=== PATIENT | male | born 1940 | race Caucasian/White ===

== ENCOUNTER 2019-01-10 10:32 | Emergency (ER) | payer MEDICARE ==
[2019-01-10] MEDS ORDERED: cefTRIAXone\\ROCEPHIN 2 GM VIAL ONE (11:35)
[2019-01-10] MEDS ORDERED: Sodium Chloride 0.9% 100 ML ONE (11:35)
[2019-01-10] MEDS ORDERED: Adacel (T-DAP) 0.5 ML SYRINGE ONE (11:35)
[2019-01-10 11:45] LABS: #Basophils 0.1 thou/uL (0.0-0.2); #Eosinphils 0.1 thou/uL (0.0-0.7); #Lymphocytes 0.9 thou/uL (1.20-3.40); #Monocytes 1.1 thou/uL (0.11-0.59); #Neutrophils 6.2 thou/uL (1.40-6.50); %Basophils 1.1 % (0.0-1.0); %Eosinophils 0.7 % (0.0-10.0); %Lymphocytes 10.6 % (21.0-51.0); %Monocytes 12.8 % (0.0-10.0); %Neutrophils 74.9 % (42.0-75.0); Hemoglobin 13.4 g/dL (14.0-18.0); Mean Corpuscular Hemoglobin 27.3 pg (27.0-31.0); Mean Corpuscular Volume 85.4 fL (78.0-98.0); Mean Platelet Volume 7.7 fL (7.4-10.4); Platelet Count 261 thou/uL (130-400); RBC Distribution Width 11.7 % (11.5-14.5); Red Blood Cell (RBC) Count 4.89 mill/uL (4.70-6.10); White Blood Cell (WBC) Count 8.2 thou/uL (4.8-10.8)
[2019-01-10 12:04] LABS: ALT (SGPT) 9 U/L (8-55); AST (SGOT) 14 U/L (5-34); Alkaline Phosphatase 71 U/L (40-150); Anion Gap 16 mmol/L (10-20); BUN (Urea Nitrogen) 10 mg/dL (8.4-25.7); Bilirubin, Total 0.5 mg/dL (0.2-1.2); Calc. Creatinine Clearance 0 mL/min (70-130); Calcium 9.5 mg/dL (7.8-10.44); Carbon Dioxide 25 mmol/L (23-31); Chloride 103 mmol/L (98-107); Estimated GFR-MDRD 67; Globulin 3.7 g/dL (2.4-3.5); Glucose 124 mg/dL (83-110); Potassium 4.3 mmol/L (3.5-5.1); Protein, Total 7.7 g/dL (5.8-8.1); Sodium 140 mmol/L (136-145)
== END 2019-01-10 13:00 | disposition home or self-care (01) ==
LOC: MADERS 10:32
DX: S51.851A Open bite of right forearm, initial encounter (principal); L03.113 Cellulitis of right upper limb; F17.290 Nicotine dependence, other tobacco product, uncomplicated; F17.220 Nicotine dependence, chewing tobacco, uncomplicated; W55.01XA Bitten by cat, initial encounter
CPT/HCPCS: 36415; 80053; 85025; 86140; 90471; 90715; 96365; J0696; J3490

== ENCOUNTER 2019-01-11 06:59 | Emergency (ER) | payer MEDICARE ==
[2019-01-11] MEDS ORDERED: Lidocaine 1% 20 ML MDV ONE (07:10)
[2019-01-11] MEDS ORDERED: cefTRIAXone\\ROCEPHIN 1 GM VIAL ONE (07:10)
== END 2019-01-11 07:30 | disposition home or self-care (01) ==
LOC: MADERS 06:59
DX: S51.851A Open bite of right forearm, initial encounter (principal); L03.113 Cellulitis of right upper limb; F17.290 Nicotine dependence, other tobacco product, uncomplicated; F17.220 Nicotine dependence, chewing tobacco, uncomplicated; Z79.2 Long term (current) use of antibiotics; W55.01XA Bitten by cat, initial encounter
CPT/HCPCS: 96372; 99282; J0696; J2001